=== PATIENT | female | born 1965 | race Caucasian/White ===

== ENCOUNTER 2021-11-13 04:18 | Emergency (ER) | payer OTHER ==
[~2021-11-13] VITALS: Ht 162.6 cm; Wt 61.0 kg
[~2021-11-13 04:18] MED LIST: ARIP15TA2 PO; BENZ1TAB7 PO; LISI2.5T47 PO; VENL150T3 PO
[2021-11-13 04:20] VITALS: BP 107/64
[2021-11-13] MEDS ORDERED: HYDROCODONE/ACETAMINOPHEN 5/325MG TABLET PO ONE (04:45)
[2021-11-13] MEDS ORDERED: ACET-2708 MT (05:16)
== END 2021-11-13 06:17 | disposition home or self-care (01) ==
LOC: ER 04:35
DX: M79.661 Pain in right lower leg (principal); J45.909 Unspecified asthma, uncomplicated; F31.9 Bipolar disorder, unspecified; Z79.899 Other long term (current) drug therapy
CPT/HCPCS: 73502; 93971; 99284